=== PATIENT | female | born 1985 ===

== ENCOUNTER 2023-05-24 12:31 | Emergency (ER) | payer BC ==
[2023-05-24] MEDS ORDERED: Ketorolac 30 MG/ML SDV IVPUSH ONE (14:19)
[2023-05-24] MEDS ORDERED: Sodium Chloride 0.9% 10 ML Syringe FLUSH PRN (14:19)
[2023-05-24] MEDS ORDERED: Sodium Chloride 0.9% 500 ML IV ONE (14:19)
[2023-05-24] MEDS ORDERED: methylPREDNISolone Sodium Succinate 125 MG/2 ML SDV IVPUSH ONE (14:19)
[2023-05-24 15:55] VITALS: BP 135/101; PULSE 87
== END 2023-05-24 15:29 | disposition home or self-care (01) ==
LOC: JD.ED 12:31
DX: M25.551 Pain in right hip (principal); E03.9 Hypothyroidism, unspecified; Z86.16 Personal history of COVID-19; Z79.899 Other long term (current) drug therapy; Z91.013 Allergy to seafood; Z91.041 Radiographic dye allergy status; Z91.040 Latex allergy status; Z91.048 Other nonmedicinal substance allergy status; Z88.1 Allergy status to other antibiotic agents
CPT/HCPCS: 73502; 96374; 96375; 99283; J1885; J2930; J3490; J7040